=== PATIENT | male | born 1965 | race Caucasian/White ===

== ENCOUNTER 2017-04-02 05:16 | Day surgery (SDC) | payer OTHER ==
[~2017-04-02] VITALS: Ht 175.3 cm; Wt 81.6 kg
--- NOTE | ~2017-04-02 | O ---
[facility] [place] [facility] [place] [address] OPERATIVE REPORT Name: DANIELLE LEE Room #: DEP [facility].#: [id number] Admission: 04/02/17 Attend Phys: Arabella Morin MD, Discharge: 04/02/17 Date of : 61 Report #: [id number] THIS REPORT FOR: //name// CC: ANGEL LUIS Morin DATE OF SERVICE: 04/02/2017 PREOPERATIVE DIAGNOSIS: Symptomatic cholelithiasis. POSTOPERATIVE DIAGNOSES: 1. Symptomatic cholelithiasis. 2. Chronic cholecystitis. 3. Umbilical hernia. PROCEDURES PERFORMED: 1. Laparoscopic cholecystectomy with intraoperative cholangiogram. 2. Primary suture repair of an umbilical hernia defect. SURGEON: Arabella Morin MD APPLICATION DEFENSE MANAGER: LEYDI Harris ANESTHESIA: General endotracheal anesthesia. ESTIMATED BLOOD LOSS: Minimal (less than 10 mL). COMPLICATIONS: None appreciated. SPECIMENS: Gallbladder to Pathology. INDICATIONS: The patient is a 51-year-old male with a history of progressively worsening right upper quadrant pain and abdominal right upper quadrant pain and nausea, worse in a post-prandial setting. The patient was evaluated with an ultrasound, which showed cholelithiasis, but no evidence of active cholecystitis. As such, indication was for the above-mentioned procedures today. Intraoperative findings of a small umbilical hernia were found that required primary suture repair at the time of extraction of the specimen through the umbilicus. DESCRIPTION OF PROCEDURE: After explaining the risks, benefits and alternatives of the procedure with the patient in detail in the preoperative holding area and obtaining written consent, the patient was brought to the operating room and placed supine on the operating room table. After conducting a thorough timeout procedure verifying correct patient and procedure, the patient was given general endotracheal anesthesia. Once adequate anesthesia was obtained, SCDs were [facility] [address] [place] [address] OPERATIVE REPORT Name: DANIELLE LEE Room #: DEP SD Aaliyah.Patrica#: [id number] Admission: 04/02/17 Attend Phys: Arabella Morin MD, Discharge: 04/02/17 Date of : 61 Report #: [id number] hooked up in the patient's bilateral lower extremities and he was given a preoperative dose of antibiotics in line with SCI protocol. The patient's abdomen was now prepped and draped in standard surgical sterile fashion. A 5 mL of 0.5% Marcaine with epinephrine were used to anesthetize the skin in the right upper quadrant midclavicular line and subcostal location. A #15 bladed scalpel was used to create a small skin [place] at this location. A 5 mm Visiport was placed over 0 degree 5 mm laparoscope and was introduced through this incision site. Once intra-abdominal placement was verified visually, the obturator for the trocar and laparoscope were both removed and the abdomen was insufflated to 15 mmHg using carbon dioxide gas. The laparoscope was changed to a 5-mm 30-degree laparoscope, which was reintroduced through this trocar. The entire abdomen was evaluated to ensure no injury upon entry. I now anesthetized the skin in the supraumbilical location with 5 mL of 0.5% Marcaine with epinephrine. I made a 1 cm transverse skin incision at this location. An 11 mm Visiport was placed through this incision site directly through what appeared to be a small umbilical hernia defect until intra-abdominal access was visualized. The laparoscope was then removed, changed to a 10 mm 30-degree laparoscope, which was reintroduced through the supraumbilical trocar. The patient was now placed in steep reverse Trendelenburg position with right side elevated and I proceeded to place 2 additional 5 mm working trocars. One was placed in subxiphoid location and the other was placed in the extreme right lateral flank. Both additional 5 mm ports were placed under direct vision after anesthetizing the skin at each location with 5 mL of 0.5% Marcaine with epinephrine and I had created small skin nicks using #15 bladed scalpel. Multiple attempts at grasping the gallbladder at this juncture were unsuccessful as it was exquisitely taut and felt like it had very large gallstones within it. There was a large amount of omentum plastered to the gallbladder wall at this juncture as well. Harmonic scalpel was used to take down all these adhesions of omentum to fully visualize the entire gallbladder itself. A Topel needle was used to puncture the dome of the gallbladder and attempt aspiration. However, the bile was so thick and inspissated, it was not able to be aspirated. The Topel needle was removed and the puncture site at the dome of the gallbladder was opened with the Harmonic scalpel large enough to allow suction heat treatment technician device to fully evacuate the thick inspissated bile. Once this was drained as much as possible, the cholecystotomy was elevated and closed using a 0 PDS Endoloop. This would prevent spillage and contamination. Using inferolateral most port along the patient's right flank, the fundus of the gallbladder was now grasped and retracted cephalad. I now carried out careful tedious dissection down around the cholecystocystic junction using combination of Harmonic scalpel, hook electrocautery, [place] dissector and the suction heat treatment technician device. There was exquisite inflammation down around this region due to longstanding inflammation. Ultimately, after an hour of dissection, I was able to attain a critical view, which was namely the cystic duct emanating from the infundibulum of the gallbladder and coursing the common bile duct as well as cystic artery running the surface of the gallbladder and I had created a window behind each. I placed a clip along cystic artery and then transected above this with Harmonic scalpel [facility] [address] [place] [address] OPERATIVE REPORT Name: ROSADANIELLE Room #: DEP SD [facility]#: [id number] Admission: 04/02/17 Attend Phys: Arabella Morin MD, Discharge: 04/02/17 Date of : 61 Report #: [id number] for complete hemostasis. A single clip was then placed along cystic duct nearest to the gallbladder side and a small ductotomy was placed just distal to this clip. This ductotomy was cannulated using the taut cholangiocatheter setup and an intraoperative cholangiogram was obtained. There was prompt opacification of the cystic duct with both intra and extrahepatic bile ducts becoming opacified. There was antegrade flow of contrast into the duodenum with no evidence of filling defects or obstruction. The cholangiocatheter setup was removed. Three clips were placed along the cystic duct nearest to the gallbladder side and it was transected above these clips with the Harmonic scalpel to help seal the end of the duct closed. Further retraction at the infundibulum of the gallbladder in cephalad direction allowed me to elevate the gallbladder off the liver bed using combination of Harmonic scalpel and hook electrocautery. Once completely detached, the laparoscope was removed, changed back to the 5-mm 30-degree laparoscope which was reintroduced through the right midclavicular 5 mm trocar. The EndoCatch bag was placed in supraumbilical trocar and the specimen was placed under direct vision. The pursestring suture was drawn and the specimen was removed via the supraumbilical incision with extreme difficulty secondary to the extremely large size of the gallstones. This did necessitate me elongating the incision to approximately 3 cm transversely. I was then able to deliver the specimen out of the body. Penetrating towel clips were now placed at the supraumbilical incision and the trocars were placed under direct vision to maintain pneumoperitoneum. The laparoscope was placed back in the supraumbilical trocar and the gallbladder fossa was evaluated. We had good hemostasis on the raw liver bed, however, electrocautery was used at few areas of gentle oozing to maintain complete hemostasis. I irrigated the right upper quadrant with 3 liters normal saline until it ran clear and it was all suctioned out. I did elect to place Arian in the bed of the gallbladder fossa for long-term hemostasis as well. One final evaluation of the intra-abdominal domain showed no further evidence of pathology. The abdomen was fully desufflated. All trocars removed under direct vision. The penetrating towel clips were removed. I then closed the supraumbilical fascial incision using 0 PDS suture in standard running fashion. Care was taken to ensure that I did not catch a loop of bowel or omentum in my suture repair. A finger was placed in the abdomen to check prior to tying the suture down to ensure no injury. Subcutaneous wound was irrigated and all skin incisions were closed using 4-0 Monocryl in standard subcuticular fashion. Dermabond glue was applied to all skin wounds. The gallbladder was opened on the back table showing significant findings consistent with chronic cholecystitis as well as extremely large numerous gallstones, but no other pathologic findings were identified. At the end of the procedure, all instrument, needle and sponge counts were correct. The patient tolerated the [address] [address] OPERATIVE REPORT Name: DANIELLE LEE Room #: DEP [facility]#: [id number] Admission: 04/02/17 Attend Phys: Arabella Morin MD, Discharge: 04/02/17 Date of : 61 Report #: [id number] procedure without incident, was awakened in the operating room and transitioned to the recovery room in stable condition with no apparent complications. <ELECTRONICALLY SIGNED> By: Arabella Morin MD, FACS 04/02/17 1414 [id number] [id number] Arabella Morin MD, FACS /nt
--- NOTE | ~2017-04-02 | S ---
[facility] [place] [address] SURGICAL PATH RPT PROCEDURE Name: NALDO SCHOFIELD Room #: DEP [facility] M.R.#: [id number] Admission: 04/02/17 Date of : 61 Discharge: 04/02/17 Report #: [id number] Path Case #: [id number] PATHOLOGY REPORT COLLECTION DATE: 04/02/2017 RECEIVED DATE: 04/02/2017 SUBMITTING PHYS: Dr. Arabella Morin OTHER PHYS: Dr. Sheron Glez SPECIMEN(S) RECEIVED: A.Gallbladder * * * * * * * * * * * * FINAL DIAGNOSIS: A. Gallbladder: - [place] chronic cholecystitis with lymphoid aggregates, see comment. - Cholelithiasis. - Hepatic parenchyma. COMMENT: A diffuse chronic inflammatory infiltrate is present. Lymphoid aggregates are also present. These findings, although not diagnostic nor necessarily indicative of, have been observed in patients with inflammatory bowel disease. Clinical correlation is recommended. PATHOLOGIST: Eddy Arias M.D. REPORT ELECTRONICALLY SIGNED BY: Eddy Arias M.D. DATE/TIME: 04/03/2017 12:50 * * * * * * * * * * * * GROSS PATHOLOGY: Received in formalin labeled "Naldo Schofield gallbladder," is a 8.6 x 4.1 x 2.9 cm, previously opened gallbladder with light phillips to pink serosal surfaces. Opening the gallbladder reveals light phillips, grainy mucosa and an average wall thickness of 0.2 cm. Calculi are present, measuring 2.2-3.9 cm in maximum dimension, possessing a dark phillips color, and feeling firm to the touch. No masses are noted grossly. Mottle Lay Up Operator sections from the body and fundus are submitted along with the proximal margin in cassette A1. (TSD; 04/02/2017) CLINICAL HISTORY: Gallbladder disease INITIAL CPT CODE(S): [facility] [place] [address] SURGICAL PATH RPT PROCEDURE Name: [facility]ANALDO [facility] [id number] Admission: 04/02/17 Date of : 61 Discharge: 04/02/17 Report #: [id number] Path Case #: [id number]; [id number] Professional services performed by [facility] at [place] [address], [place] [address] Technical services performed by [facility] at [address] [place] [address], [place] [address]. [facility] [address] [place] [address] PHONE: [phone] DIRECTOR: Sd Rosenberg M.D. * * * END OF REPORT * * *
[~2017-04-02 05:16] MED LIST: CYMBALTA60 MG PO; FISH OIL 1,001000 M2 PO; FLEXERIL PO; IBUPROFEN 800800 M1 PO; MULTI VITAMIN1 EACH PO; PRILOSEC 10MG C10 MG PO; TRAMADOL 50 MG50 MG PO
[2017-04-02 07:15] VITALS: BP 127/84
[2017-04-02] MEDS ORDERED: SENOKOT-S1 TA2 PO (10:44)
[2017-04-02] MEDS ORDERED: HYDROCODONE-AP1 EAC6 PO (10:44)
[2017-04-02 11:12] VITALS: BP 127/84
== END 2017-04-02 12:35 | disposition home or self-care (01) ==
LOC: OR 05:16 → TBA 05:17 → OR 08:50
DX: K80.10 Calculus of gallbladder with chronic cholecystitis without obstruction (principal); K42.9 Umbilical hernia without obstruction or gangrene; E78.5 Hyperlipidemia, unspecified; K21.9 Gastro-esophageal reflux disease without esophagitis; Z98.890 Other specified postprocedural states; Z79.899 Other long term (current) drug therapy; Z79.891 Long term (current) use of opiate analgesic
CPT/HCPCS: 50010; 50101; 50249; 50411; 50555; 50558; 50900; 50962; 51297; 51489; 51975; 52265; 52266; 52287; 53307; 54022; 54118; 55245; 55317; 56462; 56525; 56526; 56970; 62110; 62900; 70005

== ENCOUNTER → 2020-02-20 | Outpatient (CLI) | payer OTHER ==
[~2020-02-20] MED LIST changes: +HYDROCODONE-AP1 EAC6 PO; +SENOKOT-S1 TA2 PO
== END ==
LOC: SJCVCIMAG 09:39
PROVIDERS: ATTEND Internal Medicine
DX: I08.1 Rheumatic disorders of both mitral and tricuspid valves (principal); I45.10 Unspecified right bundle-branch block; R42 Dizziness and giddiness